=== PATIENT | female | born 1975 ===

== ENCOUNTER → 2018-09-27 | Day surgery (SDC) | payer OTHER | END | disposition home or self-care (01) | LOC: CIR.AMB 06:37 | DX: O02.1 Missed abortion (principal); Z3A.01 Less than 8 weeks gestation of pregnancy ==

== ENCOUNTER 2021-03-18 10:12 | Day surgery (SDC) | payer OTHER | END 2021-03-18 21:30 | disposition home or self-care (01) | LOC: CIR.AMB 10:12 | PROVIDERS: ATTEND Obstetrics & Gynecology | DX: O02.1 Missed abortion (principal); Z20.822 Contact with and (suspected) exposure to COVID-19 ==